=== PATIENT | female | born 1985 | race Asian ===

== ENCOUNTER 2018-08-31 07:32 | Inpatient (IN) | payer BC ==
[2018-08-31] MEDS ORDERED: Buffered Lidocaine 1% SYRIN* 1 ML/SYRINGE INTRADERM ONE (07:44)
[2018-08-31] MEDS ORDERED: Lactated Ringers 1000 ML Bag* 1,000 ML IV ONE ×2 (07:44→09:11)
[2018-08-31] MEDS ORDERED: fentaNYL* 50 MCG/ML 2 ML VIAL (100 MCG VIAL) ONE ×2 (07:59→14:18)
--- NOTE | 2018-08-31 08:00 | HP ---
General Information - Reason for Visit labor. Ctx irregular overnight but more regular since 6am. No LOF. Min bleeding. - General Information Maternal Age: 32 Grav: 2 Para: 0 SAB: 0 IEA: 1 Estimated Due Date: 09/05/18 Determined By: LMP Maternal Blood Type and Rh: AB Positive - Results this Serology/RPR Result: Non-Reactive Rubella Result: Immune HBsAg Result: Negative HIV Result: Negative GBS Culture Result: Negative Past Medical History Pertinent Past Medical History: See Records - Suspected type 2 DM dx' d early in , started insulin but then discontinued after diet/exercise changes Pertinent Past Surgical History: None Pertinent Family History: Non-Contributory - Antepartal Records Antepartal Records: Reviewed, Complicated by: - T2DM Review of Systems Constitutional: Uncomfortable - contractions CV Complaint: No Respiratory: Shortness of Breath: No Gastrointestinal: Nausea Genitourinary: Bleeding - minimal, No Leaking Fluid Musculoskeletal: Contractions Movement: Normal Exam Allergies/Adverse Reactions: Allergies No Known Allergies Allergy (Verified 08/31/18 07:41) - Measurements Height: 5 ft 2 in Weight: 169 lb Weight in lbs: [id number] Body Mass Index (BMI): 30.9 Pre- Weight: 162 lb Weight Gained This : 7 lbs and 0 ozs - Exam Breast: Breast Exam Deferred Extremities: No Edema Heart: Normal Rhythm/Heart Sounds HEENT: No Significant Findings - Ultrasound/Biophysical Profile Ultrasound Status: Not Done Targeted Exam Findings See L&D Outpatient Visit Provider Note for Findings: Yes Cervical Exam: 8cm Effacement: 100% Presenting Part: Unable to Determine - vertex 2 days ago in office Membrane Status: Bulging Bleeding/Discharge: Bloody Show EFM Findings - External Monitor Findings Baseline Heart Rate: 135 External Monitor Findings: Accelerations Present, No Pattern of Variable or Late Decelerations, Variability Moderate, Baseline Stable Contractions: Regular - q3min Assessment/Plan - Assessment @39.2wks in active labor. GBS neg. Suspected T2GDM dx'd early in , started insulin but then stopped due to significant improvement with diet and exercise changes. - Plan Plan: Observe
[2018-08-31] MEDS: Lactated Ringers 1000 ML Bag* 1,000 ML IV SCH ×2 (08:10→09:02)
[2018-08-31 08:17] LABS: ABS Basophils 0 10^3/ul (0-0.2); ABS Eosinophils 0 10^3/ul (0-0.6); ABS Lymphocytes 2.9 10^3/ul (1.0-4.8); ABS Monocytes 0.6 10^3/ul (0-0.8); ABS Neutrophils 4.7 10^3/ul (1.5-7.7); ABS Nucleated RBC 0 10^3/ul; Eosinophil % 0.4 %; Hematocrit 41 % (35-47); Hemoglobin 13.7 g/dl (12.0-16.0); Lymphocyte % 34.6 %; Mean Corpuscular HGB Conc 34 g/dl (31-36); Mean Corpuscular Hemoglobin 29 pg (27-31); Mean Corpuscular Volume 85 fL (80-97); Mean Platelet Volume 10.8 fL (7.4-10.4); Nucleated Red Blood Cells % 0; Platelet Count 220 10^3/ul (150-450); Red Cell Distribution Width 14 % (10.5-15); White Blood Count 8.3 10^3/ul (3.5-10.8)
[2018-08-31] MEDS ORDERED: Phenylephrine IV* 40 MCG/ML 10 ML SYRINGE IV PUSH PRN ×2 (09:11)
[2018-08-31] MEDS ORDERED: Sodium Citrate/Citric Acid* 15 ML UDC PO PRN (09:11)
[2018-08-31] MEDS ORDERED: Famotidine TAB* 20 MG PO PRN (09:11)
[2018-08-31] MEDS ORDERED: Lactated Ringers 1000 ML Bag* 500 ML IV PRN ×2 (09:11)
[2018-08-31] MEDS ORDERED: Lactated Ringers 1000 ML Bag* 1,000 ML IV SCH (10:00)
[2018-08-31] MEDS ORDERED: OBEPIDURAL* 250 ML EPIDURAL SCH (10:00)
--- NOTE | 2018-08-31 10:02 | PTEDU ---
Patient Name: KAMRON VERGARA KAMRON VERGARA selected video: Never Ever Shake a Baby to view on 08/31/2018 at 10:01:[address] [id number]
[2018-08-31] MEDS: Oxytocin in LR* 20 UNITS/1,000 ML BAG IVPB ONE ×2 (13:25→15:32)
[2018-08-31] MEDS ORDERED: Dibucaine 1% 28.35 GM TUBE ONE ×2 (13:33→20:26)
[2018-08-31] MEDS ORDERED: Witch Hazel PAD* JAR ONE (13:34)
[2018-08-31] MEDS ORDERED: Oxytocin in LR* 40 UNITS/2,000 ML BAG IVPB ONE (14:14)
--- NOTE | 2018-08-31 15:04 | PROCNOTE ---
[facility]: Delivery Note - Nursery Level of Nursery: Regular/Bedside - Perineum Perineal Injury: 2nd Degree Perineal Repair: By Delivering Practioner - Events Delivery Events of Note: Pitocin Only After Delivery, Post- Bleeding - Meds Given - cytotec 800mcg, 2L pitocin - Risk for Falls Delivered OB Patient- Risk for Falls: Heavy Bleeding Fall Risk: Patient is at High Risk for Falls - Additional Delivery Notes Additional Delivery Notes: Pt presented in active labor at 8cm. She received an epidural, underwent AROM and progressed to fully dilated. She pushed for almost 1.5hrs to deliver the in JOSE position followed quickly by the shoulders and the rest of the body. The baby was placed on mom's abdomen. The cord was clamped x2 and cut by dad. Cord blood was collected. The placenta was delivered with gentle cord traction and fundal massage and appeared to be intact. There was brisk bleeding improved with emptying the bladder and fundal massage. Cytotec was given 800mcg rectally and pitocin was given IV. A jagged 2nd degree laceration was repaired with 3-0 vicryl. At conclusion of the repair the fundus was firm and there was good hemostasis. About 1hr after delivery she had a gush of blood and about 200ml of blood was evaluated from the upper vagina and lower uterine segment. Afterwards the fundus was firm with good hemostasis.
[2018-08-31] MEDS ORDERED: Misoprostol TAB* 200 MCG ONE (16:13)
[2018-08-31] MEDS ORDERED: Ibuprofen TAB* 600 MG ONE (16:18)
[2018-08-31] MEDS ORDERED: Ammonia Inhalant* 1 EA AMP ONE (17:15)
[2018-08-31] MEDS: Ibuprofen TAB* 600 MG PO PRN (18:19)
[2018-09-01] MEDS: Ibuprofen TAB* 600 MG PO PRN ×3 (00:53→16:48)
[2018-09-01] MEDS ORDERED: Dibucaine 1% 28.35 GM TUBE PR PRN (05:29)
[2018-09-01] MEDS ORDERED: Witch Hazel PAD* JAR TOPICAL PRN (05:29)
[2018-09-01] MEDS ORDERED: Acetaminophen TAB* 325 MG PO PRN (05:29)
[2018-09-01] MEDS ORDERED: Glycerin ADULT SUPP PR PRN (05:29)
[2018-09-01] MEDS ORDERED: Lactated Ringers 1000 ML Bag* 1,000 ML IV SCH (06:00)
[2018-09-01 06:33] LABS: ABS Basophils 0 10^3/ul (0-0.2); ABS Eosinophils 0 10^3/ul (0-0.6); ABS Lymphocytes 2.7 10^3/ul (1.0-4.8); ABS Monocytes 1.1 10^3/ul (0-0.8); ABS Neutrophils 10.9 10^3/ul (1.5-7.7); ABS Nucleated RBC 0 10^3/ul; Eosinophil % 0.1 %; Hematocrit 23 % (35-47); Hemoglobin 7.6 g/dl (12.0-16.0); Lymphocyte % 18.4 %; Mean Corpuscular HGB Conc 34 g/dl (31-36); Mean Corpuscular Hemoglobin 29 pg (27-31); Mean Corpuscular Volume 86 fL (80-97); Mean Platelet Volume 10.3 fL (7.4-10.4); Nucleated Red Blood Cells % 0; Platelet Count 167 10^3/ul (150-450); Red Blood Count 2.63 10^6/ul (4.00-5.40); Red Cell Distribution Width 14 % (10.5-15); White Blood Count 14.7 10^3/ul (3.5-10.8)
[2018-09-01] MEDS ORDERED: Ferrous Gluconate TAB* 324 MG TAB ONE (08:34)
[2018-09-01] MEDS: Docusate CAP* 100 MG PO SCH ×3 (08:57→21:38)
[2018-09-01] MEDS: Simethicone TAB* 80 MG TAB.CHEW PO SCH ×2 (08:57→16:49)
[2018-09-01] MEDS: Ferrous Gluconate TAB* 324 MG TAB PO SCH (21:39)
[2018-09-02] MEDS: Ferrous Gluconate TAB* 324 MG TAB PO SCH (08:30)
[2018-09-02] MEDS: Docusate CAP* 100 MG PO SCH (08:30)
[2018-09-02] MEDS: Ibuprofen TAB* 600 MG PO PRN (08:30)
[2018-09-02 08:49] VITALS: BP 137/81
== END 2018-09-02 13:50 | disposition home or self-care (01) | DRG 560 ==
LOC: MCHOBOUT 07:32 → MCHOB 07:34
PROVIDERS: ADMIT Obstetrics & Gynecology; ATTEND Obstetrics & Gynecology
PROC: 10E0XZZ Delivery of Products of Conception, External Approach (ICD-10-PCS; principal; 2018-08-31)
PROC: 0KQM0ZZ Repair Perineum Muscle, Open Approach (ICD-10-PCS; 2018-08-31)
PROC: 10907ZC Drainage of Amniotic Fluid, Therapeutic from Products of Conception, Via Natural or Artificial Opening (ICD-10-PCS; 2018-08-31)
DX: O24.420 Gestational diabetes mellitus in childbirth, diet controlled (principal); O72.2 Delayed and secondary postpartum hemorrhage; Z37.0 Single live birth; O77.0 Labor and delivery complicated by meconium in amniotic fluid; O70.1 Second degree perineal laceration during delivery; O90.81 Anemia of the puerperium; D64.9 Anemia, unspecified; Z3A.39 39 weeks gestation of pregnancy
CPT/HCPCS: 36415; 85025; 86850; 86900; 86901; A9270-GY; J3010